=== PATIENT | male | born 1975 | race Caucasian/White ===

== ENCOUNTER 2017-01-06 10:00 | Outpatient (CLI) | payer MEDICARE | END 2017-01-06 10:01 | disposition home or self-care (01) | DX: Z13.9 Encounter for screening, unspecified (principal); E55.9 Vitamin D deficiency, unspecified; E03.9 Hypothyroidism, unspecified; R53.83 Other fatigue ==

== ENCOUNTER 2017-02-27 11:14 | Outpatient (CLI) | payer MEDICARE | END 2017-02-27 11:15 | disposition home or self-care (01) | DX: R74.8 Abnormal levels of other serum enzymes (principal); E03.9 Hypothyroidism, unspecified; E55.9 Vitamin D deficiency, unspecified ==

== ENCOUNTER 2017-04-01 12:38 | Outpatient (CLI) | payer MEDICARE ==
[2017-04-01 18:41] LABS: THYROID STIMULATING HORMONE 0.73 uIU/mL (0.34-5.60)
== END 2017-04-01 12:39 | disposition home or self-care (01) ==
LOC: LAB.F 12:38
PROVIDERS: ATTEND Internal Medicine
DX: E03.9 Hypothyroidism, unspecified (principal)
CPT/HCPCS: 36415; 84439; 84443; 84481

== ENCOUNTER 2018-01-14 09:28 | Outpatient (CLI) | payer MEDICARE ==
[2018-01-14 17:32] LABS: BASOPHILS # (AUTO) 0.1 10^3/uL (0.0-0.1); BASOPHILS % (AUTO) 1.2 %; EOSINOPHILS # (AUTO) 0.2 10^3/uL (0.0-0.7); EOSINOPHILS % (AUTO) 3.1 %; HGB - HEMOGLOBIN 16.1 g/dL (14.0-18.0); LYMPHOCYTES # (AUTO) 1.7 10^3/uL (1.5-3.5); MEAN CORPUSCULAR HEMOGLOBIN 30.1 pg (27.0-31.0); MEAN CORPUSCULAR HGB CONC 32.5 g/dL (32.0-36.0); MEAN CORPUSCULAR VOLUME 92.6 fL (80.0-94.0); MEAN PLATELET VOLUME 8.5 fL (7.4-11.4); MONOCYTES # (AUTO) 0.5 10^3/uL (0.0-1.0); MONOCYTES % (AUTO) 7.5 %; NEUTROPHILS # (AUTO) 4.6 10^3/uL (1.5-6.6); NEUTROPHILS % (AUTO) 64.2 %; PLT - PLATELET COUNT 233 10^3/uL (130-450); RED BLOOD COUNT 5.36 10^6/uL (4.70-6.10); RED CELL DISTRIBUTION WIDTH 13.5 % (12.0-15.0); WHITE BLOOD COUNT 7.2 x10^3/uL (4.8-10.8)
[2018-01-14 17:49] LABS: ALBUMIN 5.4 g/dL (3.2-5.5); ALBUMIN/GLOBULIN RATIO 1.5 (1.0-2.2); ALKALINE PHOSPHATASE 136 IU/L (42-121); ALT ALANINE AMINOTRANSFERASE 40 IU/L (10-60); AST ASPARTATE AMINOTRANSFERASE 62 IU/L (10-42); BILIRUBIN,TOTAL 1.3 mg/dL (0.2-1.0); BUN - BLOOD UREA NITROGEN 7 mg/dL (6-20); CALCIUM 9.7 mg/dL (8.5-10.3); CARBON DIOXIDE - CO2 29 mmol/L (21-32); CHLORIDE 95 mmol/L (101-111); CHOL/HDL RATIO 5.4 (<5.0); CHOLESTEROL 351 mg/dL; CREATININE 1.2 mg/dL (0.6-1.2); GFR - MDRD 67 (>89); GLUCOSE 110 mg/dL (70-100); HDL CHOLESTEROL 65 mg/dL; LDL CHOLESTEROL,CALCULATED 241 mg/dL; LDL/HDL RATIO 3.7 (<3.6); SODIUM 136 mmol/L (135-145); TOTAL PROTEIN 8.9 g/dL (6.7-8.2); VLDL CHOLESTEROL 45 mg/dL
== END 2018-01-14 09:29 | disposition home or self-care (01) ==
LOC: LAB.F 09:28
PROVIDERS: ATTEND Family Medicine
DX: R74.8 Abnormal levels of other serum enzymes (principal); Z87.898 Personal history of other specified conditions; E55.9 Vitamin D deficiency, unspecified; E03.9 Hypothyroidism, unspecified
CPT/HCPCS: 36415; 80053; 80061; 82306; 83721; 84443; 85025

== ENCOUNTER 2018-03-03 07:48 | Outpatient (CLI) | payer MEDICARE ==
[2018-03-03 12:00] LABS: ALBUMIN 4.5 g/dL (3.2-5.5); ALBUMIN/GLOBULIN RATIO 1.4 (1.0-2.2); BILIRUBIN,TOTAL 0.8 mg/dL (0.2-1.0); CALCIUM 9.7 mg/dL (8.5-10.3); TOTAL PROTEIN 7.7 g/dL (6.7-8.2)
== END 2018-03-03 07:49 | disposition home or self-care (01) ==
LOC: LAB.F 07:48
PROVIDERS: ATTEND Physician Assistant Medical
DX: R74.8 Abnormal levels of other serum enzymes (principal)
CPT/HCPCS: 36415; 80053

== ENCOUNTER 2018-06-07 14:55 | Outpatient (CLI) | payer MEDICARE ==
[2018-06-07 19:17] LABS: ALBUMIN 4.3 g/dL (3.2-5.5); ALBUMIN/GLOBULIN RATIO 1.3 (1.0-2.2); BILIRUBIN,TOTAL 0.7 mg/dL (0.2-1.0); TOTAL PROTEIN 7.5 g/dL (6.7-8.2)
== END 2018-06-07 14:56 | disposition home or self-care (01) ==
LOC: LAB.F 14:55
PROVIDERS: ATTEND Physician Assistant Medical
DX: R74.8 Abnormal levels of other serum enzymes (principal); E03.9 Hypothyroidism, unspecified
CPT/HCPCS: 36415; 80053; 84443

== ENCOUNTER 2019-09-16 09:17 | Outpatient (CLI) | payer MEDICARE ==
[2019-09-16 17:26] LABS: BASOPHILS # (AUTO) 0.1 10^3/uL (0.0-0.1); EOSINOPHILS # (AUTO) 0.3 10^3/uL (0.0-0.7); EOSINOPHILS % (AUTO) 4.3 %; HGB - HEMOGLOBIN 14.1 g/dL (14.0-18.0); LYMPHOCYTES # (AUTO) 2.4 10^3/uL (1.5-3.5); LYMPHOCYTES % (AUTO) 30.9 %; MEAN CORPUSCULAR HEMOGLOBIN 30.2 pg (27.0-31.0); MEAN CORPUSCULAR HGB CONC 32.2 g/dL (32.0-36.0); MEAN CORPUSCULAR VOLUME 93.8 fL (80.0-94.0); MEAN PLATELET VOLUME 11.7 fL (7.4-11.4); MONOCYTES # (AUTO) 0.7 10^3/uL (0.0-1.0); MONOCYTES % (AUTO) 8.6 %; NEUTROPHILS # (AUTO) 4.2 10^3/uL (1.5-6.6); NEUTROPHILS % (AUTO) 54.8 %; PLT - PLATELET COUNT 278 10^3/uL (130-450); RED BLOOD COUNT 4.67 10^6/uL (4.70-6.10); RED CELL DISTRIBUTION WIDTH 12.2 % (12.0-15.0); WHITE BLOOD COUNT 7.7 x10^3/uL (4.8-10.8)
[2019-09-16 17:38] LABS: ALBUMIN 4.5 g/dL (3.2-5.5); ALBUMIN/GLOBULIN RATIO 1.4 (1.0-2.2); BILIRUBIN,TOTAL 0.6 mg/dL (0.2-1.0); CALCIUM 9.7 mg/dL (8.5-10.3); CREATININE 0.9 mg/dL (0.6-1.2); TOTAL PROTEIN 7.8 g/dL (6.7-8.2)
== END 2019-09-16 09:18 | disposition home or self-care (01) ==
LOC: LAB.S 09:17
PROVIDERS: ATTEND Physician Assistant Medical
DX: I10 Essential (primary) hypertension (principal)
CPT/HCPCS: 36415; 80053; 85025

== ENCOUNTER 2019-09-22 09:32 | Outpatient (CLI) | payer MEDICARE | END 2019-09-22 09:33 | disposition home or self-care (01) | LOC: LAB.S 09:32 | PROVIDERS: ATTEND Physician Assistant Medical | DX: E03.9 Hypothyroidism, unspecified (principal) | CPT/HCPCS: 36415; 84443 ==

== ENCOUNTER 2019-09-26 10:30 | Outpatient (CLI) | payer MEDICARE | END 2019-09-26 10:31 | disposition home or self-care (01) | LOC: LAB.S 10:30 | PROVIDERS: ATTEND Physician Assistant Medical | DX: E03.9 Hypothyroidism, unspecified (principal) | CPT/HCPCS: 84443 ==

== ENCOUNTER 2019-12-29 09:43 | Outpatient (CLI) | payer MEDICARE ==
[2019-12-29 17:59] LABS: CHOL/HDL RATIO 5.6 (<5.0); CHOLESTEROL 353 mg/dL; HDL CHOLESTEROL 63 mg/dL; LDL CHOLESTEROL,CALCULATED 245 mg/dL; LDL/HDL RATIO 3.9 (<3.6); VLDL CHOLESTEROL 45 mg/dL
== END 2019-12-29 09:44 | disposition home or self-care (01) ==
LOC: LAB.S 09:43
PROVIDERS: ATTEND Physician Assistant Medical
DX: E78.5 Hyperlipidemia, unspecified (principal); E55.9 Vitamin D deficiency, unspecified
CPT/HCPCS: 36415; 80061; 82306; 83721

== ENCOUNTER 2020-09-19 21:05 | Outpatient (CLI) | payer MEDICARE | END 2020-09-19 21:06 | disposition critical access hospital (66) | LOC: EMS 21:05 | PROVIDERS: ATTEND Surgery | DX: R40.20 Unspecified coma (principal) | CPT/HCPCS: A0425; A0427 ==

== ENCOUNTER 2020-09-19 21:34 | Emergency (ER) | payer MEDICARE ==
--- NOTE | 2020-09-19 21:52 | ED Physician Documentation ---
History of Present Illness - Stated complaint Stated Complaint: AMS, SYNCOPE - History obtained from History obtained from: Patient, EMS - Additonal information Additional information: Pt was brought to the emergency department by EMS after having an episode of altered mental status at home. Medics state that patient's mother reported that the patient came in to her room this afternoon and stated he did not feel well. She then found him sleeping could not arouse him later. The patient remembers not feeling well, but he cannot really articulate exactly what way he did not feel well. He states that he has felt somewhat dizzy and drowsy, but denies fevers, pain, nausea, cough, shortness of breath, or any other symptoms. His only complaint at this time is that he needs to urinate. Patient denies any drugs. No other complaints at this time. Review of Systems Ten Systems: 10 systems reviewed and negative Constitutional: reports: Reviewed and negative Eyes: reports: Reviewed and negative Ears: reports: Reviewed and negative Nose: reports: Reviewed and negative Throat: reports: Reviewed and negative Cardiac: reports: Reviewed and negative Respiratory: reports: Reviewed and negative GI: reports: Reviewed and negative. denies: Abdominal Pain, Nausea : reports: Reviewed and negative Skin: reports: Reviewed and negative Musculoskeletal: reports: Reviewed and negative Neurologic: reports: Reviewed and negative Psychiatric: reports: Reviewed and negative Endocrine: reports: Reviewed and negative Immunocompromised: reports: Reviewed and negative PD PAST MEDICAL HISTORY - Present Medications Home Medications: Ambulatory Orders Medication Instructions Recorded Confirmed Atomoxetine HCl [Strattera] 1 tab PO DAILY 09/19/20 09/19/20 Dextroamphetamine/Amphetamine 1 tab PO DAILY 09/19/20 09/19/20 [Adderall 20 mg Tablet] Hydrochlorothiazide 1 tab PO DAILY 09/19/20 09/19/20 Levothyroxine Sodium 1 tab PO DAILY 09/19/20 09/19/20 - Allergies Allergies/Adverse Reactions: Allergies Allergy/AdvReac Type Severity Reaction Status Date / Time No Known Drug Allergies Allergy Verified 09/19/20 21:51 PD ED PE NORMAL - Vitals Vital signs reviewed: Yes - General General: No acute distress, Other (Hard of hearing, but answers questions appropriately.) - HEENT HEENT: Atraumatic, PERRL, EOMI, Moist mucous membranes - Neck Neck: Supple, no meningeal sign - Cardiac Cardiac: RRR, No murmur - Respiratory Respiratory: No respiratory distress, Clear bilaterally - Abdomen Abdomen: Soft, Non tender, Non distended - Derm Derm: Warm and dry, No rash, Other (mild pallor) - Extremities Extremities: No deformity, No edema - Neuro Neuro: Alert and oriented X 3, No motor deficit, Other (Chronic hardness of hearing.) - Psych Psych: Normal mood, Normal affect Results - Vitals Vitals: Oxygen O2 Source Room air - Labs Labs: Laboratory Tests 09/19/20 09/19/20 09/19/20 21:50 22:00 22:00 WBC 7.2 RBC 4.53 L Hgb 13.8 L Hct 41.8 L MCV 92.3 MCH 30.5 MCHC 33.0 RDW 14.0 Plt Count 272 MPV 9.7 Neut # (Auto) 4.5 Lymph # (Auto) 2.2 [place] # (Auto) 0.3 Eos # (Auto) 0.1 Baso # (Auto) 0.1 Absolute Nucleated RBC 0.00 Nucleated RBC % 0.0 Sodium Potassium Chloride Carbon Dioxide Anion Gap BUN Creatinine Estimated GFR (MDRD) Glucose Calcium Total Bilirubin AST ALT Alkaline Phosphatase Total Protein Albumin Globulin Albumin/Globulin Ratio Lipase TSH 2.77 Urine Opiates Screen NEGATIVE Ur Oxycodone Screen NEGATIVE Urine Methadone Screen NEGATIVE Ur Propoxyphene Screen NEGATIVE Acetaminophen Ur Barbiturates Screen NEGATIVE Ur Tricyclics Screen NEGATIVE Ur Phencyclidine Scrn NEGATIVE Ur Amphetamine Screen NEGATIVE U Methamphetamines Scrn NEGATIVE U Benzodiazepines Scrn NEGATIVE Urine Cocaine Screen NEGATIVE U Cannabinoids Screen NEGATIVE Ethyl Alcohol 09/19/20 22:00 WBC RBC Hgb Hct MCV MCH MCHC RDW Plt Count MPV Neut # (Auto) Lymph # (Auto) [place] # (Auto) Eos # (Auto) Baso # (Auto) Absolute Nucleated RBC Nucleated RBC % Sodium 143 Potassium 3.4 L Chloride 100 L Carbon Dioxide 27 Anion Gap 16.0 H BUN 10 Creatinine 1.0 Estimated GFR (MDRD) 82 L Glucose 104 H Calcium 8.4 L Total Bilirubin 0.4 AST 35 ALT 25 Alkaline Phosphatase 94 Total Protein 7.8 Albumin 4.6 Globulin 3.2 Albumin/Globulin Ratio 1.4 Lipase 21 L TSH Urine Opiates Screen Ur Oxycodone Screen Urine Methadone Screen Ur Propoxyphene Screen Acetaminophen < 10 L Ur Barbiturates Screen Ur Tricyclics Screen Ur Phencyclidine Scrn Ur Amphetamine Screen U Methamphetamines Scrn U Benzodiazepines Scrn Urine Cocaine Screen U Cannabinoids Screen Ethyl Alcohol 297.7 - Rads (name of study) head CT Radiology: Final report received, EMP read indepedently, See rad report (nad) PD MEDICAL DECISION MAKING - ED course Complexity details: reviewed results, re-evaluated patient, considered differential, d/w patient ED course: Was worked up with labs, including TSH and EtOH levels, and CT scan of the head, as well as urine drug screen. He was given IV fluids in the emergency department. The patient's work-up was unremarkable except for an alcohol level of nearly 300. The patient was awake and talking, and I felt he was stable for discharge home. Of informed him that his ethanol level is quite high, and that it will take some hours for him to metabolize this. The patient should go home and go to bed. We have discussed the usual indications for return. Departure - Departure Disposition: 01 Home, Self Care Clinical Impression: Alcohol intoxication delirium Condition: Stable Instructions: ED Alcohol Intoxication Comments: Or a rather high alcohol level at nearly 300. This is nearly 4 times the driving limit. Toxicology screening did not show any other measurable intoxicants in your system. Please drink plenty of fluids and get plenty of rest at home tonight to allow your body to process the alcohol out of your system. Please do not drink any more alcohol tonight and do not take any sedating medications. If you are a chronic drinker and feel that you are ready to get help with your drinking, please speak with your primary care physician about getting set up to get help. Discharge Date/Time: 09/20/20 00:12
[2020-09-19] MEDS ORDERED: SODIUM CHLORIDE 0.9% 1,000 ML IV STA (21:53)
[2020-09-19 22:17] LABS: BASOPHILS # (AUTO) 0.1 10^3/uL (0.0-0.1); EOSINOPHILS # (AUTO) 0.1 10^3/uL (0.0-0.7); EOSINOPHILS % (AUTO) 1.8 %; HGB - HEMOGLOBIN 13.8 g/dL (14.0-18.0); LYMPHOCYTES # (AUTO) 2.2 10^3/uL (1.5-3.5); MEAN CORPUSCULAR HEMOGLOBIN 30.5 pg (27.0-31.0); MEAN CORPUSCULAR VOLUME 92.3 fL (80.0-94.0); MEAN PLATELET VOLUME 9.7 fL (7.4-11.4); MONOCYTES # (AUTO) 0.3 10^3/uL (0.0-1.0); MONOCYTES % (AUTO) 4.7 %; NEUTROPHILS # (AUTO) 4.5 10^3/uL (1.5-6.6); NEUTROPHILS % (AUTO) 62.1 %; PLT - PLATELET COUNT 272 10^3/uL (130-450); RED BLOOD COUNT 4.53 10^6/uL (4.70-6.10); WHITE BLOOD COUNT 7.2 x10^3/uL (4.8-10.8)
[2020-09-19 22:29] LABS: MUDS CUTOFF CONCENTRATIONS CUTOFF CONC BELOW:
[2020-09-19 22:34] LABS: ACETAMINOPHEN < 10 ug/mL (10-30); ALBUMIN 4.6 g/dL (3.2-5.5); ALBUMIN/GLOBULIN RATIO 1.4 (1.0-2.2); ALKALINE PHOSPHATASE 94 IU/L (42-121); ALT ALANINE AMINOTRANSFERASE 25 IU/L (10-60); AST ASPARTATE AMINOTRANSFERASE 35 IU/L (10-42); BILIRUBIN,TOTAL 0.4 mg/dL (0.2-1.0); BUN - BLOOD UREA NITROGEN 10 mg/dL (6-20); CALCIUM 8.4 mg/dL (8.5-10.3); CARBON DIOXIDE - CO2 27 mmol/L (21-32); CHLORIDE 100 mmol/L (101-111); GLUCOSE 104 mg/dL (70-100); LIPASE 21 U/L (22-51); SODIUM 143 mmol/L (135-145); TOTAL PROTEIN 7.8 g/dL (6.7-8.2)
[2020-09-19 22:42] LABS: AMPHETAMINE SCREEN,URINE NEGATIVE (NEGATIVE); BENZODIAZEPINES SCREEN, URINE NEGATIVE (NEGATIVE); COCAINE SCREEN URINE NEGATIVE (NEGATIVE); METHADONE SCREEN, URINE NEGATIVE (NEGATIVE); METHAMPHETAMINES SCREEN, URINE NEGATIVE (NEGATIVE); OPIATE SCREEN, URINE NEGATIVE (NEGATIVE); OXYCODONE SCREEN, URINE NEGATIVE (NEGATIVE); PROPOXYPHENE SCREEN, URINE NEGATIVE (NEGATIVE); TRICYCLIC ANTIDEPRESSANT,URINE NEGATIVE (NEGATIVE)
[2020-09-20 00:12] VITALS: BP 152/101
--- NOTE | 2020-09-20 07:21 | CT Report ---
PROCEDURE: HEAD WO INDICATIONS: ALOC TECHNIQUE: Noncontrast 4.5 mm thick angled axial sections acquired from the foramen magnum to the vertex. For r adiation dose reduction, the following was used: automated exposure control, adjustment of mA and/or kV according to patient size. COMPARISON: None. FINDINGS: Image quality: Excellent. CSF spaces: Basal cisterns are patent. No extra-axial fluid collections. Ventricles are normal in size and shape. Brain: No midline shift. No intracranial masses or hemorrhage. [place]-white matter interface is norm al. His cortical volume loss. Bilateral periventricular hypoattenuation compatible with sequela of ch ronic small vessel disease. Atherosclerotic calcifications are noted intracranial internal carotid ar teries. Skull and face: Calvarium and visualized facial bones are intact, without suspicious lesions. Bilate ral cochlear implants noted. Sinuses: Visualized sinuses and mastoids are clear. IMPRESSION: CT head without acute intracranial abnormalities. Age-related senescent changes and sequ erin of chronic small vessel ischemic disease. No significant discrepancy with initial interpretation by overnight radiologist. Reviewed by: Kyree Palacios MD on 09/20/2020 7:20 AM PST Approved by: Kyree Palacios MD on 09/20/2020 7:20 AM PST Station ID: [id number]
== END 2020-09-20 00:12 | disposition home or self-care (01) ==
LOC: EDUNIT# → ED 21:34
DX: F10.121 Alcohol abuse with intoxication delirium (principal)
CPT/HCPCS: 36415; 70450; 80053; 80306; 80307; 80320; 83690; 84443; 85025; 99284